=== PATIENT | male | born 1955 | race Caucasian/White ===

== ENCOUNTER 2020-09-21 11:18 | Emergency (ER) | payer BC ==
[2020-09-21] MEDS ORDERED: RIVAROXABAN 15 MG TABLET PO STA (12:34)
--- NOTE | 2020-09-21 12:39 | ED Physician Documentation ---
History of Present Illness - Stated complaint Stated Complaint: LT KNEE PX - Chief complaint Chief Complaint: Ext Problem - History obtained from History obtained from: Patient - History of Present Illness Timing: Today Pain level max: 5 Pain level now: 5 - Additonal information Additional information: Patient is a 65-year-old male who is visiting from [place]. He states that he has a known left leg DVT that was diagnosed last year. He has been on Eliquis for this. He states that he lost his 2 bottles of Eliquis. He states he currently does not have anymore and cannot afford to fill the prescription. He is complaining of pain in his bilateral lower extremities behind both knees. Concerned about recurrent DVT. He is unsure when he is returning back to [place]. He has no chest pain or shortness of breath. Worse with movement, better with rest. Review of Systems Constitutional: denies: Fever, Chills Respiratory: denies: Cough GI: denies: Nausea, Vomiting Skin: denies: Rash Musculoskeletal: denies: Neck pain, Back pain Neurologic: denies: Headache PD PAST MEDICAL HISTORY - Past Medical History Past Medical History: Yes Cardiovascular: High cholesterol Psych: Depression, Anxiety Other Past Medical History: DVT - Past Surgical History Past Surgical History: No - Present Medications Home Medications: Ambulatory Orders Medication Instructions Recorded Confirmed Apixaban [Eliquis] 5 mg PO BID 09/21/20 09/21/20 Atorvastatin [Lipitor] 20 mg PO DAILY 09/21/20 09/21/20 Baclofen [Lioresal] 10 mg PO DAILY 09/21/20 09/21/20 Rivaroxaban [Xarelto] 15 mg PO BID #42 tablet 09/21/20 Venlafaxine HCl [Effexor Xr] 150 mg PO DAILY 09/21/20 09/21/20 - Allergies Allergies/Adverse Reactions: Allergies Allergy/AdvReac Type Severity Reaction Status Date / Time No Known Drug Allergies Allergy Verified 09/21/20 11:33 - Social History Does the pt smoke?: No Smoking Status: Never smoker Does the pt drink ETOH?: Yes ETOH Use: Wine Does the pt have substance abuse?: No - Immunizations Immunizations are current?: Yes PD ED PE NORMAL - Vitals Vital signs reviewed: Yes - General General: Alert and oriented X 3, No acute distress - HEENT HEENT: Moist mucous membranes - Neck Neck: Supple, no meningeal sign - Cardiac Cardiac: RRR - Respiratory Respiratory: No respiratory distress, Clear bilaterally - Derm Derm: Warm and dry - Extremities Extremities: Other (Mild swelling to the bilateral lower extremities, left slightly greater than right. Neurovascularly intact. No deformities. Full range of motion of all major joints without pain.) - Neuro Neuro: Alert and oriented X 3 Results - Vitals Vitals: Vital Signs - 24 hr 09/21/20 09/21/20 09/21/20 11:28 11:39 13:41 Temperature 36.1 C L 36.6 C Heart Rate 72 68 68 Respiratory 16 16 16 Rate Blood Pressure 132/86 H 139/83 H 126/82 H O2 Saturation 100 99 99 Oxygen O2 Source Room air - Rads (name of study) Duplex ultrasound bilateral lower extremity Radiology: Prelim report reviewed, EMP read contemporaneously, See rad report (Nonocclusive DVT left popliteal vein. Otherwise negative) PD MEDICAL DECISION MAKING - ED course Complexity details: reviewed results, re-evaluated patient, considered differential, d/w patient ED course: Patient does have a nonocclusive DVT in the left popliteal vein. We will place him on Xarelto as he states he cannot afford Eliquis. We will see if this is covered by his insurance. Given a dose here. No evidence of PE. No chest pain or shortness of breath. Patient can utilize Tylenol as needed for pain. Patient counseled regarding signs and symptoms for which I believe and urgent re-evaluation would be necessary. Patient with good understanding of and agreement to plan and is comfortable going home at this time This document was made in part using voice recognition software. While efforts are made to proofread this document, sound alike and grammatical errors may occur. Departure - Departure Disposition: Home, Self Care Clinical Impression: DVT (deep venous thrombosis) Qualifiers: DVT location: lower extremity Affected thrombotic vein of extremity: unspecified vein of extremity Chronicity: chronic Laterality: left Qualified Code(s): I82.502 - Chronic embolism and thrombosis of unspecified deep veins of left lower extremity Condition: Good Instructions: ED DVT Follow-Up: Your,doctor in 1 week [Other] Prescriptions: Rivaroxaban [Xarelto] 15 mg PO BID #42 tablet Comments: Since the Eliquis is expensive for you, we will try you on Xarelto instead to see if this is cheaper for you. The initial dosing is 15 mg by mouth twice a day for 21 days, your doctor will then need to change you to 20 mg once daily. If there are issues filling this, please have the pharmacy call us. Discharge Date/Time: 09/21/20 14:09
[2020-09-21 13:42] VITALS: BP 126/82
--- NOTE | 2020-09-21 14:27 | Ultrasound Report ---
PROCEDURE: Duplex Ext Veins Bilateral INDICATIONS: Bilateral lower extremity pain TECHNIQUE: Real-time imaging, as well as color and pulse Doppler interrogation, were performed of the deep veins of both legs from the inguinal ligament to the popliteal fossa. COMPARISON: None FINDINGS: On the right, deep veins are normally compressible, and free of intraluminal thrombus. Col or and pulse Doppler demonstrate normal phasic intravascular flow. There is normal augmentation resp onse to distal compression maneuver. On the left, there are internal echoes and incomplete compressibility noted in the left popliteal vei n. The remainder of the visualized vasculature unremarkable. IMPRESSION: Minimal nonocclusive deep venous thrombosis left popliteal vein. The remainder of the deep venous system is patent without thrombus bilaterally. Preliminary report was provided to Dr. Hardy by the senior clerk at 1:50 PM Baez time Reviewed by: Josh Willis MD on 09/21/2020 1:25 PM ANASTASIYA Approved by: Josh Willis MD on 09/21/2020 1:25 PM AKJANIE Station ID: [id number]
== END 2020-09-21 14:09 | disposition home or self-care (01) ==
LOC: ED 11:18
DX: I82.532 Chronic embolism and thrombosis of left popliteal vein (principal); Z79.01 Long term (current) use of anticoagulants
CPT/HCPCS: 93970; 99284; A9270

== ENCOUNTER 2020-12-03 20:26 | Emergency (ER) | payer BC ==
[2020-12-03] MEDS ORDERED: BENZONATATE 100 MG CAPSULE PO STA (20:56)
[2020-12-03] MEDS ORDERED: HYDROcod/ACET 5/325 Prepack 4 PO STA (20:56)
--- NOTE | 2020-12-03 20:58 | ED Physician Documentation ---
History of Present Illness - Stated complaint Stated Complaint: COVID SYMPTOMS - Chief complaint Chief Complaint: General - History obtained from History obtained from: Patient - Additonal information Additional information: 65-year-old gentleman got first dose of Pfizer a week ago to the day, continue to have a sore arm and then progressively developed fevers, chills, body aches, headache, cough and mild shortness of breath and was subsequently tested outpatient today and was found to be positive for Covid. [facility] and the question of antibody therapy. Review of Systems Constitutional: reports: Fever, Chills, Myalgias, Fatigue Nose: reports: Rhinorrhea / runny nose Throat: reports: Sore throat Respiratory: reports: Dyspnea, Cough PD PAST MEDICAL HISTORY - Past Medical History Past Medical History: Yes Cardiovascular: High cholesterol Psych: Depression, Anxiety - Past Surgical History Past Surgical History: No - Present Medications Home Medications: Ambulatory Orders Medication Instructions Recorded Confirmed Apixaban [Eliquis] 5 mg PO BID 09/21/20 12/03/20 Atorvastatin [Lipitor] 20 mg PO DAILY 09/21/20 12/03/20 Baclofen [Lioresal] 10 mg PO DAILY 09/21/20 12/03/20 Rivaroxaban [Xarelto] 15 mg PO BID #42 tablet 09/21/20 12/03/20 Venlafaxine HCl [Effexor Xr] 150 mg PO DAILY 09/21/20 12/03/20 Benzonatate [Tessalon] 200 mg PO QID PRN #20 cap 12/03/20 HYDROcod/ACETAM 5/325 [[place] 5/325] 1 - 2 tab PO Q6H PRN #15 tablet 12/03/20 - Allergies Allergies/Adverse Reactions: Allergies Allergy/AdvReac Type Severity Reaction Status Date / Time No Known Drug Allergies Allergy Verified 12/03/20 20:45 - Social History Does the pt smoke?: No Smoking Status: Never smoker Does the pt drink ETOH?: Yes Does the pt have substance abuse?: No - Immunizations Immunizations are current?: Yes PD ED PE NORMAL - Vitals Vital signs reviewed: Yes - General General: Alert and oriented X 3, No acute distress - Neuro Neuro: Alert and oriented X 3, Normal speech - Psych Psych: Normal mood, Normal affect Results - Vitals Vitals: Vital Signs - 24 hr 12/03/20 12/03/20 20:45 20:52 Temperature 37.3 C 37.3 C Heart Rate 80 80 Respiratory 20 20 Rate Blood Pressure 164/84 H 150/81 H O2 Saturation 100 100 Oxygen O2 Source Room air PD MEDICAL DECISION MAKING - ED course ED course: He is a candidate for antibody therapy given his age and BMI, that said we only administer this treatment when the pharmacist is in house, so we will give him some symptomatic treatments tonight and retest him for Covid given that the pharmacist will need a positive confirmed test result and he will return tomorrow for reevaluation and infusion. Departure - Departure Disposition: Home, Self Care Clinical Impression: COVID-19 Condition: Good Record reviewed to determine appropriate education?: Yes Instructions: ED Viral Syndrome Prescriptions: HYDROcod/ACETAM 5/325 [[place] 5/325] 1 - 2 tab PO Q6H PRN #15 tablet PRN Reason: Pain Benzonatate [Tessalon] 200 mg PO QID PRN #20 cap PRN Reason: Cough Comments: As discussed, we are happy to prescribe antibiotic therapy for Covid, that said we only do it when the pharmacist is here as they need to mix it up. You can return tomorrow morning, sometime after 7 or 8 AM for reevaluation and if appropriate, antibody/Regeneron infusion. Prescription sent electronically to [facility] in [place]. I am prescribing a short course of narcotic pain medication for you. These are potentially dangerous and addictive medications that should be used carefully. These medications may constipate you. Take an kkim-[id number] stool softener (docusate) twice daily with plenty of water while taking these medications. If you go 24 hours without a bowel movement, take [id number] miralax, per package instructions. Do not drink or drive while taking these medications. If you received narcotic or sedating medications while in the emergency department, do not drive for 24 hours. Store this medication in a safe, secure place and out of reach of children. It is a violation of federal law to give or sell this medication to another person or to use in a manner other than prescribed. The ED will not refill narcotic prescriptions, including prescriptions lost or stolen. To dispose of unwanted medications: 1. [facility] at [address] in [place] has a medication drop box. They accept prescription medications (in pill form) Wednesday through Wednesday 9:00 a.m. to 5:00 p.m. 2. [facility] accepts prescription medications (in pill form only) for disposal year round. Call for more information. 3. Contact the [facility] for the next [facility] sponsored prescription drug collection event. , [phone], or [phone]; Note that many narcotic pain relievers also contain Tylenol/acetaminophen. Please ensure that your total dose of acetaminophen from all sources does not exceed 3 g (3000 mg) per day.
[2020-12-03 21:21] VITALS: BP 132/78
[2020-12-03 22:07] LABS: B. PARAPERTUSSIS- RESP PCR PAN NOT DETECTED; B. PERTUSSIS- RESP PCR PANEL NOT DETECTED; C. PNEUMONIAE- RESP PCR PANEL NOT DETECTED; CORONAVIRUS 229E-RESP PCR NOT DETECTED; CORONAVIRUS HKU1-RESP PCR NOT DETECTED; CORONAVIRUS NL63-RESP PCR NOT DETECTED; CORONAVIRUS OC43-RESP PCR NOT DETECTED; HUMAN METAPNEUMOVIRUS NOT DETECTED; INFLUENZA A- RESP PCR PANEL NOT DETECTED; INFLUENZA B - RESP PCR PANEL NOT DETECTED; M. PNEUMONIAE- RESP PCR PANEL NOT DETECTED; PARAINFLUENZA VIRUS 1 NOT DETECTED; PARAINFLUENZA VIRUS 2 NOT DETECTED; PARAINFLUENZA VIRUS 3 NOT DETECTED; PARAINFLUENZA VIRUS 4 NOT DETECTED; RHINOVIRUS/ENTEROVIRUS NOT DETECTED; RSV- RESP PCR PANEL NOT DETECTED; SARS-CoV-2 -RESP PCR PANEL DETECTED
== END 2020-12-03 21:20 | disposition home or self-care (01) ==
LOC: ED 20:26
DX: U07.1 COVID-19 (principal)
CPT/HCPCS: 0202U; 99283; A9270

== ENCOUNTER 2020-12-04 13:00 | Emergency (ER) | payer BC ==
[2020-12-04] MEDS ORDERED: CASIRIVIMAB/IMDEVIMAB 10 ML in SODIUM CHLORIDE 0.9% 50 ML IV ONE (16:00)
--- NOTE | 2020-12-04 16:20 | ED Physician Documentation ---
History of Present Illness - Stated complaint Stated Complaint: C+/TOLD TO RETURN FOR [place] - Chief complaint Chief Complaint: General - Additonal information Additional information: 65-year-old male returns to the emergency department for Mab therapy. He was seen in this ER department yesterday 1 week after receiving his Pfizer vaccine feeling unwell. He did test positive for Covid. Based on his BMI he is a candidate for RegenLingvistn. He continues to endorse fevers myalgias and chills. Some diarrhea. He is not having any vomiting or chest pain. Review of Systems Constitutional: reports: Fever, Chills, Myalgias Eyes: reports: Reviewed and negative Nose: reports: Reviewed and negative Throat: reports: Reviewed and negative Cardiac: reports: Reviewed and negative Respiratory: reports: Reviewed and negative GI: reports: Diarrhea. denies: Abdominal Pain : reports: Reviewed and negative Skin: reports: Reviewed and negative Musculoskeletal: reports: Reviewed and negative Neurologic: reports: Reviewed and negative PD PAST MEDICAL HISTORY - Past Medical History Cardiovascular: High cholesterol Psych: Depression, Anxiety - Past Surgical History Past Surgical History: No - Present Medications Home Medications: Ambulatory Orders Medication Instructions Recorded Confirmed Apixaban [Eliquis] 5 mg PO BID 09/21/20 12/03/20 Atorvastatin [Lipitor] 20 mg PO DAILY 09/21/20 12/03/20 Baclofen [Lioresal] 10 mg PO DAILY 09/21/20 12/03/20 Rivaroxaban [Xarelto] 15 mg PO BID #42 tablet 09/21/20 12/03/20 Venlafaxine HCl [Effexor Xr] 150 mg PO DAILY 09/21/20 12/03/20 Benzonatate [Tessalon] 200 mg PO QID PRN #20 cap 12/03/20 HYDROcod/ACETAM 5/325 [[place] 5/325] 1 - 2 tab PO Q6H PRN #15 tablet 12/03/20 - Allergies Allergies/Adverse Reactions: Allergies Allergy/AdvReac Type Severity Reaction Status Date / Time No Known Drug Allergies Allergy Verified 12/04/20 15:16 - Social History Does the pt smoke?: No Smoking Status: Never smoker Does the pt drink ETOH?: Yes Does the pt have substance abuse?: No - Immunizations Immunizations are current?: Yes PD ED PE NORMAL - General General: Alert and oriented X 3, No acute distress - HEENT HEENT: PERRL - Neck Neck: Supple, no meningeal sign - Cardiac Cardiac: RRR, No murmur - Respiratory Respiratory: Clear bilaterally - Abdomen Abdomen: Normal bowel sounds, Soft, Non tender, Non distended - Derm Derm: Normal color, Warm and dry, No rash - Extremities Extremities: No deformity - Neuro Neuro: Alert and oriented X 3 Eye Opening: Spontaneous Motor: Obeys Commands Verbal: Oriented GCS Score: 15 Results - Vitals Vitals: Vital Signs - 24 hr 12/04/20 12/04/20 15:16 16:16 Temperature 36.8 C Heart Rate 67 69 Respiratory 20 24 Rate Blood Pressure 162/83 H 135/82 H O2 Saturation 99 97 Oxygen O2 Source Room air PD MEDICAL DECISION MAKING - ED course Complexity details: d/w patient ED course: 65-year-old male who received his first Pfizer COVID-19 vaccine 1 week ago presents the emergency department for Regeneron/Mab therapy. He tested positive for Covid yesterday. This gentleman has no hypoxia and unremarkable cardiopulmonary auscultation. He did receive the Regeneron today in the emergency department and was advised to continue follow-up with his PCP. Emergent worrisome return precautions were discussed. We also discussed that he cannot receive the second of Pfizer vaccine until 90 days have passed since he got the Mab therapy today. Departure - Departure Disposition: 01 Home, Self Care Clinical Impression: COVID-19 Condition: Stable Record reviewed to determine appropriate education?: Yes Comments: Hugo you were seen in the emergency department today to receive Regeneron or the monoclonal antibody therapy as a treatment for COVID-19 infection. Your vital signs are good and your lungs sound normal. It is important that you continue to convalesce at home. You should remain in quarantine for at least 10 days from the onset of symptoms. You can not receive your second Pfizer or COVID-19 vaccine for at least 90 days after your Mab treatment today. If at any point you have worsening symptoms, labored breathing oxygen levels less than 90% at home then please return immediately to the ER for second evaluation.
[2020-12-04 17:05] VITALS: BP 138/80
== END 2020-12-04 17:05 | disposition home or self-care (01) ==
LOC: ED 13:00
DX: U07.1 COVID-19 (principal); Z68.30 Body mass index [BMI] 30.0-30.9, adult; Z79.01 Long term (current) use of anticoagulants
CPT/HCPCS: 99283; M0243; Q0244